=== PATIENT | female | born 1985 | race Caucasian/White ===

== ENCOUNTER → 2017-05-17 07:16 | Outpatient (CLI) | payer OTHER | END | disposition home or self-care (01) | LOC: D.US 07:16 | DX: R10.9 Unspecified abdominal pain (principal) ==

== ENCOUNTER 2018-10-05 20:11 | Emergency (ER) | payer BC ==
[~2018-10-05] VITALS: Ht 172.7 cm; Wt 72.7 kg
[2018-10-05 20:19] VITALS: BP 144/86; Ht 172.7 cm; Wt 72.7 kg
== END 2018-10-05 22:59 | disposition home or self-care (01) ==
LOC: D.ER 20:11
DX: R10.9 Unspecified abdominal pain (principal)